=== PATIENT | male | born 1970 | race Caucasian/White ===

== ENCOUNTER 2024-06-05 14:42 | Outpatient (AMB) | payer OTHER, SELFPAY ==
--- NOTE | 2024-06-05 15:10 | A.OFFPC_ITS ---
Vital Signs 06/05/24 15:19 Height 5 ft 4.45 in Weight 173 lb 6 oz BMI 29.3 BP 120/70 Blood Pressure Location Rt brachial Position Sitting Respiration 14 Pulse 76 Pulse Source Pulse Oximeter Temp 98.9 F Temp Source Oral Pulse Oximetry (%) 98 Oxygen Delivery Method Room Air Intake Visit Reasons: STUDENT COUNSELLOR-PE Intake Note: patient is scheduled for new patient establish care Beveller Operator Required: No Allergies No Known Allergies Allergy (Verified 06/05/24 15:16) Medication List - Last Reconciled 06/05/24 by Sunny Brody MD No Known Home Meds Tobacco use date assessed: 06/05/24 Dental Screening Dental Screen Date: 06/05/24 Did you have a dental visit in the last 12 months?: Yes Did you have a dental problem in the last 6 months where you did not have access to dental care?: No Was dental information given to patient?: No HPI STUDENT COUNSELLOR-PE HPI Details New Patient? ?? Prior PCP:? No recent PCP Last office visit/CPE:? Many yrs Acute issue(s):? Est CAre ?? PMHx:? denies SurgHx:?None FHx:? Mother: DM, HTN. Brother: DM, HTN. SocHx: Quit 6 yrs ago. 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 1. Little interest or pleasure in doing things: not at all 2. Feeling down, depressed, or hopeless: not at all 3. Trouble falling or staying asleep, or sleeping too much: not at all 4. Feeling tired or having little energy: not at all 5. Poor appetite or overeating: not at all 6. Feeling bad about yourself - or that you are a failure or have let yourself or your family down: not at all 7. Trouble concentrating on things, such as reading the newspaper or watching television: not at all 8. Moving or speaking so slowly that other people could have noticed. Or the opposite - being so fidgety or restless that you have been moving around a lot more than usual: not at all 9. Thoughts that you would be better off or of hurting yourself in some way: not at all Total score: 0 Depression Screening Interpretation: Negative Depression Screening Done: Yes 71329 - PHQ-9 Billing: Yes Source: Developed by Drs. Luciano Montalvo, Monika Clark, Micah Vera and colleagues, with an educational yuri from [employer]. Thrive Questionnaire Date Thrive assessed: 06/05/24 I am a: Patient What is your living situation today?: I have a steady place to live Within the past 12 months, did the food you bought not last and you didn't have the money to get more?: Never true Within the past 12 months, did you worry whether your food would run out before you got money to buy more?: Never true Do you have trouble paying for medicines?: No Do you have trouble getting transportation to medical appointments?: No Do you have trouble paying your heating and electricity bill?: No Do you have trouble taking care of your child, family member or friend?: No Do you have trouble with day-to-day activities such as bathing, preparing meals, shopping, managing finances, etc.?: No Are you currently unemployed and looking for a job?: No Are you interested in more education?: No Please select the resources that you would like help with: None Currently or been in a relationship where the following occur: No concerns reported THRIVE Score: 0 AUDIT C Alcohol Use Questionnaire (AUDIT-C) 1. How often do you have a drink containing alcohol?: Never 3. How often do you have six or more drinks on one occasion?: Never Total Score: 0 Score Reviewed/Action Taken: Yes GENARO-7 AMB Questionnaire GENARO-7 Date GENARO - 7 assessed: 06/05/24 Feeling nervous, anxious, or on edge: 0 = Not at all Not being able to stop or control worryin = Not at all Worrying too much about different things: 0 = Not at all Trouble relaxin = Not at all Being so restless that it is hard to sit still: 0 = Not at all Becoming easily annoyed or irritable: 0 = Not at all Feeling afraid as if something awful might happen: 0 = Not at all Total GENARO-7 score (0-4 normal; 5-9 mild; 10-14 moderate; 15-21 severe): 0 Source: Developed by Drs. Luciano Montalvo, Monika Clark, Micah Vera and colleagues, with an educational yuri from [employer]. GENARO-7 Assessment Billing GENARO-7 Assessment Tool: GENARO-7 Assessment 80197 Review of Systems Const Denies chills, Denies fatigue, Denies fever(s), Denies headache(s) and Denies weakness Eyes Denies change in vision ENT Denies dizziness, Denies headache(s), Denies hearing loss, Denies nasal gale estion, Denies sinus pain, Denies sinus pressure and Denies sore throat Card Denies chest pain, Denies lightheadedness, Denies dyspnea and Denies other (palpitations) Resp Denies cough, Denies dyspnea and Denies wheezing GI Denies abdominal pain, Denies melena, Denies hematochezia, Denies change in bowel habits, Denies dyspepsia and Denies nausea Denies hematuria and Denies dysuria Musc Denies abnormal gait, Denies myalgias, Denies arthralgias, Denies numbness and Denies tingling Skin/Breast Denies rash, Denies unusual bruising and Denies wounds Neuro Denies abnormal gait, Denies dizziness, Denies headache(s), Denies memory loss, Denies numbness, Denies Sensory deficit (Neuro), Denies tingling and Denies weakness Psych Denies anxiety, Denies depression and Denies memory loss Endo Denies cold intolerance, Denies fatigue, Denies heat intolerance, Denies polydipsia and Denies polyuria Ankit/Lymph Denies easy bleeding and Denies easy bruising Aller/Immun Denies wheezing Physical exam (Primary Care) Vital Signs: Last Vital Signs Temp 98.9 F 06/05/24 15:19 Pulse 76 06/05/24 15:19 Resp 14 06/05/24 15:19 BP 120/70 06/05/24 15:19 Pulse Ox 98 06/05/24 15:19 Oxygen Delivery Method Room Air 06/05/24 15:19 BMI result Body Mass Index 29.3 Tobacco/Smoking Status: Tobacco use Status Tobacco use date assessed 06/05/24 06/05/24 15:22 Patient Tobacco Use Status Never used Tobacco 06/05/24 15:22 e-Cigarette/Vaping Use Never Used 06/05/24 15:22 PHQ-9: PHQ-9 Score PHQ-9: Total score 0 06/05/24 15:22 Depression Screening Interpretation: Negative Thrive Assessment: Date of Thrive Assessment Date Thrive assessed 06/05/24 06/05/24 15:22 Currently or been in a relationship where the following occur: No concerns reported Const General: no acute distress, well developed, alert and awake Nutritional Appearance: well nourished Orientation/consciousness: patient oriented x3 HENMT Head: Yes normocephalic and Yes atraumatic Ears: hearing grossly normal bilaterally and TM's normal bilaterally General nose exam: Normal external nose present and Normal nares present Mouth: Normal oral and palatal mucosa present and moist mucous membranes Teeth and gingiva: dentition normal Throat: Yes posterior oropharynx normal Eyes General: appearance normal, both eyes and all related structures Pupils: Equal, round and reactive pupils present and Pupil accommodation reflex normal EOM: EOMs intact bilaterally Neck Neck: Yes normal visual inspection, Yes no lymphadenopathy and Yes trachea midline Thyroid: Thyroid normal Carotids: no bruits Lymphatic: no lymphadenopathy noted Chest Chest palpation & inspection: normal inspection of the chest Resp Effort & Inspection: normal respiratory effort Auscultation: clear to auscultation bilaterally Cardio Rate: regular rate Rhythm: regular rhythm Heart sounds: S1 normal heart sound present, S2 normal heart sound present, no gallops, no murmurs and no rubs Bruits: no abdominal aortic bruits and no carotid bruits GI Palpation (GI): No Abdominal aortic bruit present, Soft to palpation, nontender, No hepatosplenomegaly present and No Rebound tenderness present Auscultation: normal bowel sounds General: Yes no CVA tenderness Back/Spine/Pelvis Back: no CVA tenderness Cervical Spine: cervical ROM normal and No Cervical spine tenderness Thoracic/Lumbar Spine: thoraco-lumbar ROM normal, No pain with thoraco-lumbar ROM, No thoracic spinal tenderness and No lumbar spinal tenderness Skin Lesions: no lesions Rashes: no rashes Trauma: no lacerations or abrasions Wounds: no wounds Nails: normal Neuro General: patient oriented x3 Cranial nerves: Yes Equal, round and reactive pupils present Cognition (Neuro): normal cognition Gait exam (Neuro): Normal gait present Motor exam (neuro): 5/5 motor strength present throughout Sensory Exam: No Sensory deficit (Neuro) Deep tendon reflexes (DTR's): Right patellar reflex intensity grade: 2+ and Left patellar reflex intensity grade: 2+ Extrem General: Yes normal to inspection and No edema Psych Appearance: grossly normal Affect: normal affect Attitude: cooperative Thought process: Normal thought process present Coding Level of Care Code New Pt Level 3 (87264) New Pt Prev Care 40-64y(49182) Diagnoses Adult general medical exam Z00.00 Screening for prostate cancer Z12.5 Additional Codes GENARO-7 Assessment Billing - GENARO-7 Assessment Tool: GENARO-7 Assessment 03038 ([id number]) PHQ-9 - 55756 - PHQ-9 Billing: Yes ([id number]) Assessment & Plan Assessment & Plan (1) Adult general medical exam: Code(s): Z00.00 - Encounter for general adult medical examination without abnormal findings Category: Medical Plan: 53-year-old?male?presents?as?new?patient?for?complete?physical?exam Exam?within?normal?limits Encouraged?healthy?diet?with?active?lifestyle?and?plenty?of?exercise (2) Screening for prostate cancer: Code(s): Z12.5 - Encounter for screening for malignant neoplasm of prostate Category: Medical Plan: Check?PSA Orders: Orders Microalbumin, Random (w Creat) Today I10 - Essential (primary) hypertension Prostate Specific Antigen Scr Today Z12.5 - Encounter for screening for malignant neoplasm of prostate TSH reflex Free T4 Today Z00.00 - Encounter for general adult medical examination without abnormal findings UA and rflx microscopic Today Z00.00 - Encounter for general adult medical examination without abnormal findings Comprehensive [place]. Panel Fast Today Z00.00 - Encounter for general adult medical examination without abnormal findings Lipid Panel Today Z00.00 - Encounter for general adult medical examination without abnormal findings Complete Blood Count Auto Diff Today Z00.00 - Encounter for general adult medical examination without abnormal findings
[2024-06-05 15:19] VITALS: BP 120/70; PULSE 76; RESP 14; TEMP 37.2; O2SAT 98; BMI 29.3
== END 2024-06-05 16:00 | disposition home or self-care (01) ==
LOC: HO.HMCFM 14:43
PROVIDERS: PCP Family Medicine; Visit Provider Family Medicine
DX: Z00.00 Encounter for general adult medical examination without abnormal findings (principal); Z12.5 Encounter for screening for malignant neoplasm of prostate

== ENCOUNTER → 2024-06-05 14:42 | Outpatient (BNVA) | payer OTHER, SELFPAY | PROVIDERS: PCP Family Medicine; Visit Provider Family Medicine ==

== ENCOUNTER 2024-06-05 15:38 | Outpatient (REF) | payer OTHER, SELFPAY ==
[2024-06-05 17:36] LABS: Appearance Urine Cloudy; Color Urine Dark Yellow; Glucose Urine UA Negative (Negative); Leukocyte Esterase Urine Negative (Negative); Nitrite Urine Negative (Negative); Specific Gravity - Urine >= 1.030 (1.005-1.025); Urine Blood Negative (Negative); Urine Ketones Negative (Negative); Urine Protein Trace mg/dL (Neg-Trace)
[2024-06-05 17:49] LABS: MANUAL DIFF FLAG NO
[2024-06-05 18:00] LABS: Basophils Percent Auto 0.3 % (0-2); Eosinophils Absolute Auto 0.1 X10*3/uL (0.0-0.4); Eosinophils Percent Auto 1.8 % (0-4); Hematocrit 43.2 % (42.0-52.0); Hemoglobin 14.5 g/dl (14.0-18.0); Imm Gran Abs Auto 0.05 X10*3/uL (0.00-0.03); Imm Gran Pct Auto 0.8 % (0.0-0.4); Lymphocytes Absolute Auto 2.3 X10*3/uL (1.2-4.9); Lymphocytes Percent Auto 35.2 % (20-40); Mean Corpuscular HGB Conc 33.6 g/dl (31.0-36.0); Mean Corpuscular Hemoglobin 30.3 pg (27.0-33.0); Mean Corpuscular Volume 90.2 fL (80.0-98.0); Monocytes Absolute Auto 0.4 X10*3/uL (0.1-1.2); Monocytes Percent Auto 6.2 % (2-11); Neutrophils Absolute Auto 3.7 x10*3/uL (2.0-8.3); Neutrophils Percent Auto 55.7 % (45-73); Platelet Count 209 X10*3/uL (160-400); Red Blood Count 4.79 X10*6/uL (4.60-5.80); Red Cell Distribution Width 11.1 % (11.0-16.0); White Blood Count 6.6 X10*3/uL (4.8-10.8)
[2024-06-05 18:19] LABS: Creatinine Urine 304.48 mg/dL; Microalbum/Creatinine Ratio Ur 5.2 ug/mg cr (<30)
[2024-06-05 18:33] LABS: Albumin Level 4.5 g/dL (3.5-5.0); Alkaline Phosphatase 53 U/L (39-117); Anion Gap 13 (12-20); Aspartate Amino Transferase 21 U/L (5-37); Blood Urea Nitrogen 13 mg/dL (9-16); Calcium 9.2 mg/dL (8.4-10.2); Carbon Dioxide 26 mmol/L (22-29); Chloride 107 mmol/L (96-108); Cholesterol 206 mg/dL (<200); Estimated Glomerular Filt Rate > 60; Glucose Fasting 105 mg/dL (60-99); HDL Cholesterol 33 mg/dL (>40); LDL Cholesterol Calculated 156 mg/dL (<100); Potassium 3.9 mmol/L (3.3-5.1); Sodium 142 mmol/L (135-145); Total Protein 7.8 g/dL (6.5-8.0); Triglycerides 88 mg/dL (<150)
[2024-06-05 18:41] LABS: Prostate Specific Antigen Scr 0.74 ng/mL (<0.05-4.0)
[2024-06-05 18:43] LABS: Alanine Aminotransferase 31 U/L (0-40); TSH reflex Free T4 0.78 uIU/mL (0.32-4.0)
== END 2024-06-05 15:39 | disposition home or self-care (01) ==
LOC: HO.WFDLDS 15:38
PROVIDERS: Visit Provider Family Medicine
DX: Z00.00 Encounter for general adult medical examination without abnormal findings (principal); Z12.5 Encounter for screening for malignant neoplasm of prostate; I10 Essential (primary) hypertension
CPT/HCPCS: 36415; 80053; 80061; 81003; 82043; 82570; 84153; 84443; 85025; 96127; 99386

== ENCOUNTER 2024-07-09 16:43 | Outpatient (AMB) | payer OTHER, SELFPAY ==
--- NOTE | 2024-07-09 16:41 | MHC.PC.OV ---
Intake Visit Reasons: f/u CPE-labs via telemedicine Electro Plater Required: No Allergies No Known Allergies Allergy (Verified 07/09/24 16:41) Tobacco use date assessed: 06/05/24 Dental Screening Dental Screen Date: 06/05/24 HPI f/u CPE-labs via telemedicine HPI Details 53 y/o male presents to f/u CPE-labs via telemedicine. Labs drawn 06/05/24. Reviewed labs with pt. Elevated fasting glucose of 105. Triglycerides 88. TC 206. LDl 156. HDL low at 33. PSA 0.74. TSH 0.78. 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 Cognitive needs: No Hearing needs: No Vision needs: No Questionnaire Thrive Questionnaire Date Thrive assessed: 06/05/24 I am a: Patient What is your living situation today?: I have a steady place to live Within the past 12 months, did the food you bought not last and you didn't have the money to get more?: Never true Within the past 12 months, did you worry whether your food would run out before you got money to buy more?: Never true Do you have trouble paying for medicines?: No Do you have trouble getting transportation to medical appointments?: No Do you have trouble paying your heating and electricity bill?: No Do you have trouble taking care of your child, family member or friend?: No Do you have trouble with day-to-day activities such as bathing, preparing meals, shopping, managing finances, etc.?: No Are you currently unemployed and looking for a job?: No Are you interested in more education?: No Please select the resources that you would like help with: None Currently or been in a relationship where the following occur: No concerns reported THRIVE Score: 0 GENARO-7 AMB Questionnaire GENARO-7 Date GENARO - 7 assessed: 06/05/24 Source: Developed by Drs. Luciano Montalvo, Monika Clark, Micah Vera and colleagues, with an educational yuri from [employer]. Physical exam (Primary Care) Tobacco/Smoking Status: Tobacco use Status Tobacco use date assessed 06/05/24 07/09/24 16:42 Patient Tobacco Use Status Never used Tobacco 07/09/24 16:42 e-Cigarette/Vaping Use Never Used 07/09/24 16:42 Thrive Assessment: Date of Thrive Assessment Date Thrive assessed 06/05/24 07/09/24 16:42 Currently or been in a relationship where the following occur: No concerns reported Telehealth Telehealth Telehealth Platform: Telephone Location of provider rendering services: practice address Location of patient: address on file Patient Identification confirmed using: Name, : Yes Telehealth method: voice only Patient verbally consented to treatment: Yes Patient verbally consented to billing insurance company: Yes Patient informed of any privacy concerns related to visit: Yes Minutes spent on Phone/Video with Pt.: 7 Coding Level of Care Code Tele Est Pt Level 2 (50348) Diagnoses Elevated fasting glucose R73.01 Hypercholesterolemia E78.00 Screening for prostate cancer Z12.5 Screening for colon cancer Z12.11 Assessment & Plan Assessment & Plan (1) Elevated fasting glucose: Code(s): R73.01 - Impaired fasting glucose Category: Medical Plan: Mildly?elevated?fasting?blood?sugar?105. Will?recheck?fasting?blood?sugar?with?next?blood?draw.??Will?also?check?A1c (2) Hypercholesterolemia: Code(s): E78.00 - Pure hypercholesterolemia, unspecified Category: Medical Plan: Elevated?LDL?cholesterol. Advised?a?diet?low?in?saturated?fats?and?cholesterol Will?recheck?in?2?months. We?discussed?that?if lipids?are?still?significantly?elevated,?will?want?to?consider?medication. (3) Screening for prostate cancer: Code(s): Z12.5 - Encounter for screening for malignant neoplasm of prostate Category: Medical Plan: PSA?is?within?normal?range Will?continuing?annual?screening (4) Screening for colon cancer: Code(s): Z12.11 - Encounter for screening for malignant neoplasm of colon Category: Medical Plan: Patient?has?never?had?screening?colon?cancer Referred?to?Gastroenterology Orders: Referrals Gastroenterology Referral Z12.11 - Encounter for screening for malignant neoplasm of colon
== END 2024-07-09 17:05 | disposition home or self-care (01) ==
LOC: HO.HMCFM 16:43
PROVIDERS: PCP Family Medicine; Visit Provider Family Medicine
DX: R73.01 Impaired fasting glucose (principal); E78.00 Pure hypercholesterolemia, unspecified; Z12.5 Encounter for screening for malignant neoplasm of prostate; Z12.11 Encounter for screening for malignant neoplasm of colon

== ENCOUNTER → 2024-07-09 16:43 | Outpatient (BNVA) | payer OTHER, SELFPAY | PROVIDERS: PCP Family Medicine; Visit Provider Family Medicine ==

== ENCOUNTER 2024-09-30 14:09 | Outpatient (AMB) | payer OTHER, SELFPAY ==
[2024-09-30 14:28] VITALS: BP 126/78; PULSE 69; TEMP 36.8; O2SAT 98; BMI 29.3
--- NOTE | 2024-09-30 14:28 | MHC.OFFWIV ---
Intake Vital Signs 09/30/24 14:28 Height 5 ft 4.45 in Weight 173 lb 4 oz BMI 29.3 BP 126/78 Blood Pressure Location Rt brachial Position Sitting Pulse 69 Pulse Source Pulse Oximeter Temp 98.2 F Temp Source Oral Pulse Oximetry (%) 98 Oxygen Delivery Method Room Air Intake Visit Reasons: EP Pain on LT rib Intake Note: Patient presented with left rib pain lindsay 1 week with no injury Patient Tobacco Use Status: Never used Tobacco Client Support Analyst Required: No Allergies No Known Allergies Allergy (Verified 09/30/24 14:31) Medication List - Last Reconciled 09/30/24 by Meseret Finn PA-C amoxicillin 875 mg PO BID Do you need a note to return to daycare/school/sports/work: No HPI HPI Comments History of Present Illness Details History of Present Illness - The patient is a 53-year-old male presenting with rib pain. - Pain began suddenly about 10 days ago, with no specific triggering event identified. - Pain is localized to the left anterior chest wall, occasionally moving to the back, but does not radiate to the shoulder or arm. - Has no respiratory discomfort with no cardiac history or chest pain reported. - No gastrointestinal issues or skin rash noted, and bowel movements are normal. - Sleeping facing a fan may be contributing to his symptoms. - He has no known injury or falls. - He has not been coughing or SOB. - He has no cardiac issues and he states that he runs. - He denies radiation of the pain to the left arm or jaw. - He has no associated FRY, SOB, dizziness, weakness, abd pain, n/v/d, constipation, melena, hernia or kidney stones. - He denies fever, chills, or dysuria. Physical Exam General: Cooperative, healthy appearing, comfortable, no acute distress and well developed Orientation: Patient oriented x3 Limitations: No limitations Head: Normal to inspection Neck: Normal visual inspection and Yes full ROM Respiratory: Normal respiratory effort and able to speak in complete sentences. Clear to auscultation bilaterally. No w/r/r noted. Cardiovascular: Regular rate and rhythm. Normal S1 and S2. No m/r/g noted. No TTP of the chest wall and no crepitus noted. GI: Normal to inspection. Soft to palpation and nontender, no guarding or rebound tenderness noted. No masses or hernia noted. Skin: No rashes or lesions noted Patient was informed and verbally consented to the use of an ambient scribe for clinic note documentation during this visit. 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 Cognitive needs: No Hearing needs: No Vision needs: No Review of Systems Const All systems reviewed & are unremarkable except as noted in HPI and below Physical Exam Vital Signs: Last Vital Signs Temp 98.2 F 09/30/24 14:28 Pulse 69 09/30/24 14:28 BP 126/78 09/30/24 14:28 Pulse Ox 98 09/30/24 14:28 Oxygen Delivery Method Room Air 09/30/24 14:28 BMI result Body Mass Index 29.3 Office Procedures EKG Details: Reviewed EKG, 70 BPM, No ST elevations [id number], Complete Assessment & Plan Assessment & Plan (1) Left-sided chest wall pain: Code(s): R07.89 - Other chest pain Plan Most MSK pain vs rib pain vs cardiac vs gas Plan - Perform EKG to assess cardiac function due to location of pain. - Conduct chest X-ray to evaluate lungs and ribs for any abnormalities. - Consider musculoskeletal causes for pain, but rule out other conditions with diagnostic tests. - Tylenol or motrin as needed - diet as tolerated - activites as tolerated - Advised him to f/u with his PCP. Orders: Orders AMB EKG-In Office Today R07.9 - Chest pain, unspecified XR chest 2V Today R05.9 - Cough, unspecified Coding Level of Care Code Est Pt Level 4 (09935) Diagnoses Left-sided chest wall pain R07.89 CPT Codes EKG - CPT: 19344-[id number], Complete ([id number])
== END 2024-09-30 15:36 | disposition home or self-care (01) ==
PROVIDERS: PCP Family Medicine; Visit Provider Physician Assistant Medical
DX: R07.89 Other chest pain (principal)

== ENCOUNTER 2024-09-30 14:09 | Outpatient (REF) | payer OTHER, SELFPAY ==
--- NOTE | ~2024-09-30 | XR_ITS ---
EXAMINATION: XR CHEST CLINICAL INFORMATION: R05.9 - Cough, unspecified COMPARISON: None available. TECHNIQUE: 2 views of the chest were obtained. FINDINGS: The cardiac, hilar, and mediastinal contours are normal. The lungs are clear bilaterally. There is no pneumothorax or pleural effusion. There is no focal osseous or soft tissue abnormality. XR/XR chest 2V IMPRESSION: No active pulmonary disease. Electronically signed by: Juan Lima MD 09/30/2024 03:35 PM EDT
== END 2024-09-30 14:10 | disposition home or self-care (01) ==
LOC: HO.HMGCX 14:09
PROVIDERS: PCP Family Medicine; Visit Provider Physician Assistant Medical
DX: R07.89 Other chest pain (principal); R05.9 Cough, unspecified
CPT/HCPCS: 71046; 93005; 99212

== ENCOUNTER → 2024-09-30 15:25 | Outpatient (BNV) | payer OTHER, SELFPAY | PROVIDERS: PCP Family Medicine; Visit Provider Radiology Diagnostic Radiology | DX: R05.9 Cough, unspecified (principal) | CPT/HCPCS: 71046 ==

== ENCOUNTER 2024-10-01 09:28 | Outpatient (AMB) | payer OTHER, SELFPAY ==
--- NOTE | 2024-10-01 09:31 | MHC.PC.OV ---
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 Denies any rash. Notes pain with breathing. Symptoms started about 10 days ago. He notes pain starts right around his shoulder blade - subscapularis. Has been going to the gym recently. Has not been taking any meds for the pain. Recent visit to urgent care and EKG/x-rays were negative. HPI Comments History of Present Illness Details Documentation assistance for Sunny Brody MD, was provided by Derick Colbert,? Sales And Merchandising Representative on 10/01/2024 at 10:12 AM EST. I, Dr. Brody, have read, observed, and verified documentation. ?? 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 Cognitive needs: No Hearing needs: No Vision needs: No Questionnaire Thrive Questionnaire Date Thrive assessed: 06/05/24 I am a: Patient What is your living situation today?: I have a steady place to live Within the past 12 months, did the food you bought not last and you didn't have the money to get more?: Never true Within the past 12 months, did you worry whether your food would run out before you got money to buy more?: Never true Do you have trouble paying for medicines?: No Do you have trouble getting transportation to medical appointments?: No Do you have trouble paying your heating and electricity bill?: No Do you have trouble taking care of your child, family member or friend?: No Do you have trouble with day-to-day activities such as bathing, preparing meals, shopping, managing finances, etc.?: No Are you currently unemployed and looking for a job?: No Are you interested in more education?: No Please select the resources that you would like help with: None Currently or been in a relationship where the following occur: No concerns reported THRIVE Score: 0 GENARO-7 AMB Questionnaire GENARO-7 Date GENARO - 7 assessed: 06/05/24 Source: Developed by Drs. Luciano Montalvo, Monika Clark, Micah Vera and colleagues, with an educational yuri from [employer]. Review of Systems Const Denies chills, Denies fatigue, Denies fever(s), Denies headache(s) and Denies weakness ENT Denies dizziness and Denies headache(s) Card Denies dyspnea Resp Denies cough, Denies dyspnea, Denies wheezing and Denies other (shortness of breath) Musc Reports back pain, Denies numbness and Denies tingling Neuro Denies dizziness, Denies headache(s), Denies numbness, Denies tingling and Denies weakness Psych Denies anxiety and Denies depression Endo Denies fatigue Aller/Immun Denies wheezing Physical exam (Primary Care) Vital Signs: Last Vital Signs Temp 98.1 F 10/01/24 09:35 Pulse 64 10/01/24 09:35 Resp 16 10/01/24 09:35 BP 115/69 10/01/24 09:35 Pulse Ox 98 10/01/24 09:35 Oxygen Delivery Method Room Air 10/01/24 09:35 BMI result Body Mass Index 29.2 Tobacco/Smoking Status: Tobacco use Status Tobacco use date assessed 10/01/24 10/01/24 09:38 Patient Tobacco Use Status Never used Tobacco 10/01/24 09:34 e-Cigarette/Vaping Use Never Used 10/01/24 09:34 Thrive Assessment: Date of Thrive Assessment Date Thrive assessed 06/05/24 10/01/24 09:34 Currently or been in a relationship where the following occur: No concerns reported Const General: well developed; No acute distress Nutritional Appearance: well nourished Orientation/consciousness: patient oriented x3 HENMT Head: Yes normocephalic and Yes atraumatic Eyes General: appearance normal, both eyes and all related structures Pupils: Equal, round and reactive pupils present EOM: EOMs intact bilaterally Resp Effort & Inspection: normal respiratory effort Neuro General: patient oriented x3 and gait normal Cranial nerves: Yes Equal, round and reactive pupils present Psych Affect: normal affect Coding Level of Care Code Est Pt Level 3 (94898) Diagnoses Back pain M54.9 Rib pain on left side R07.81 Assessment & Plan Assessment & Plan (1) Back pain: Code(s): M54.9 - Dorsalgia, unspecified Category: Medical (2) Rib pain on left side: Code(s): R07.81 - Pleurodynia Category: Medical Plan Patient had recent visit to urgent care and EKG and x-rays were negative. Appears to be muscle strain at subscapularis and lateral latissimus muscles Advised relative rest as he has been going to the gym lately. Advised heat NSAID and will give him a short course of muscle relaxant - do not operate machinery or drive until you know how this makes you feel Patient also has had air conditioning and fan blowing on him while he sleeps and I advised him to avoid this Offered physical therapy but patient declines this for now. Medications: New meloxicam 15 mg PO DAILY 30 tabs 2RF 30 days cyclobenzaprine 10 mg PO BID PRN 20 tabs 0RF muscle spasm 10 days
[2024-10-01 09:35] VITALS: BP 115/69; PULSE 64; RESP 16; TEMP 36.7; O2SAT 98; BMI 29.2
== END 2024-10-01 10:22 | disposition home or self-care (01) ==
LOC: HO.HMCFM 09:29
PROVIDERS: PCP Family Medicine; Visit Provider Family Medicine
DX: M54.9 Dorsalgia, unspecified (principal); R07.81 Pleurodynia

== ENCOUNTER → 2024-10-01 09:28 | Outpatient (BNVA) | payer OTHER, SELFPAY | PROVIDERS: PCP Family Medicine; Visit Provider Family Medicine | DX: R07.81 Pleurodynia (principal); M54.9 Dorsalgia, unspecified | CPT/HCPCS: 99212 ==

== ENCOUNTER 2024-11-05 14:42 | Outpatient (AMB) | payer OTHER, SELFPAY ==
--- NOTE | 2024-11-05 14:57 | MHC.OFFVIS ---
Vital Signs 11/05/24 14:58 Height 5 ft 5.4 in Weight 174 lb BMI 28.6 BP 129/71 Blood Pressure Location Lt brachial Position Sitting Pulse 70 Pulse Oximetry (%) 97 Oxygen Delivery Method Room Air Intake Visit Reasons: Colon Screening Intake Note: Patient new consult for 1st pre Colonoscopy screening. Patient denies any GI issues for today. 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 Referred by PCP for pre colonoscopy screening Patient is accompanied by his . Tamer reports stool pattern as daily, without concerns for constipation, diarrhea, or blood in stools. Occasional heartburn is experienced infrequently, approximately once every two months, and is self-resolving without the use of medication. No regurgitation, difficulty swallowing, or recent fever reported. Appetite is intact. Patient reports stable weight in the 170s. No other GI-related symptoms or systemic concerns highlighted. Patient denies: n/v, appetite changes, unintentional wt loss, ab pain or melena/hematochezia. Social hx: -Denies ETOH use -denies recreational drug use -former smoker, cessation 6-7 years ago - family hx as below -denies personal hx of CA -denies significant cardiopulmonary history -tolerated anesthesia in the past without difficulty. 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 Cognitive needs: No Hearing needs: No Vision needs: No Review of Systems Const Reports as per HPI ENT Reports as per HPI Card Reports as per HPI Resp Reports as per HPI GI Reports as per HPI Reports as per HPI Physical Exam Vital Signs: Last Vital Signs Pulse 70 11/05/24 14:58 BP 129/71 11/05/24 14:58 Pulse Ox 97 11/05/24 14:58 Oxygen Delivery Method Room Air 11/05/24 14:58 BMI result Body Mass Index 28.6 Const General: healthy appearing, no acute distress and well developed Nutritional Appearance: average body habitus Orientation/consciousness: patient oriented x3 HEENT Head: Yes normal to inspection, Yes normocephalic and Yes atraumatic Face and sinus: Yes normal facial exam Eyes General: appearance normal, both eyes and all related structures Neck Neck: Yes normal visual inspection Resp Effort & Inspection: normal respiratory effort, able to speak in complete sentences, no tracheal deviation and symmetric chest movement Cardio Jugular venous distension: no JVD Neuro General: patient oriented x3 Gait exam (Neuro): Normal gait present Psych Appearance: grossly normal Mental Status: mental status grossly normal Speech and movement: Normal speech and movement present Affect: normal affect Attitude: cooperative Thought process: Normal thought process present Thought content: Normal thought content present Insight: Good insight present (Psych) Judgement: Good judgement present (Psych) Assessment & Plan Assessment & Plan (1) Screening for colon cancer: Code(s): Z12.11 - Encounter for screening for malignant neoplasm of colon Category: Medical Plan: Due for index screening colonoscopy. Without alarm features. Medications: -prescriptions for laxative tablets and MiraLax sent to pharmacy; instructions for Gatorade purchase and clear liquid diet given. Patient educated on scheduling process, procedure preparation, including avoiding certain foods and ensuring clear liquid intake Advised on necessity for ride post-procedure due to sedation. Plan Follow-up after colonoscopy as warranted or sooner if needed Time: I spent a total of 30 minutes on the date of encounter which includes: Preparing to see the patient (reviewed previous documentation, test results and medical history) Performing a medically appropriate exam and/or evaluation Ordering medications, tests, and procedures Documenting clinical information in the health record Medications: New bisacodyl (Dulcolax (bisacodyl)) Take four tablets pre colonoscopy instructions 20 mg (4 x 5 mg) PO ONCE 4 tabs 0RF 1 day polyethylene glycol 3350 (Miralax) per colonoscopy prep instructions 238 grams PO ONCE 238 grams 0RF Coding Level of Care Code New Pt New Pt Level 3 (86401) Patient Type New Diagnoses Screening for colon cancer Z12.11
[2024-11-05 14:58] VITALS: BP 129/71; PULSE 70; O2SAT 97; BMI 28.6
== END 2024-11-05 15:28 | disposition home or self-care (01) ==
LOC: HO.HGI 14:43
PROVIDERS: PCP Family Medicine; Visit Provider Nurse Practitioner Family
DX: Z01.818 Encounter for other preprocedural examination (principal); Z12.11 Encounter for screening for malignant neoplasm of colon
CPT/HCPCS: 99203

== ENCOUNTER → 2024-11-05 14:42 | Outpatient (BNVA) | payer OTHER, SELFPAY | PROVIDERS: PCP Family Medicine; Visit Provider Nurse Practitioner Family | DX: Z01.818 Encounter for other preprocedural examination (principal); I10 Essential (primary) hypertension; M54.50 Low back pain, unspecified; E66.3 Overweight | CPT/HCPCS: 99202 ==

== ENCOUNTER 2024-11-27 08:29 | Outpatient (REF) | payer OTHER, SELFPAY ==
[2024-11-27 11:35] LABS: Hemoglobin A1C 111.8443 umol/L; Total Hemoglobin (HGBA1C) 3967.4726 umol/L
[2024-11-27 11:52] LABS: Alanine Aminotransferase 37 U/L (0-40); Albumin Level 4.7 g/dL (3.5-5.0); Alkaline Phosphatase 54 U/L (39-117); Anion Gap 12 (12-20); Aspartate Amino Transferase 35 U/L (5-37); Blood Urea Nitrogen 8 mg/dL (9-16); Calcium 8.9 mg/dL (8.4-10.2); Carbon Dioxide 25 mmol/L (22-29); Chloride 107 mmol/L (96-108); Cholesterol 228 mg/dL (<200); Estimated Glomerular Filt Rate > 60; HDL Cholesterol 36 mg/dL (>40); Potassium 4.1 mmol/L (3.3-5.1); Sodium 140 mmol/L (135-145); Total Protein 7.0 g/dL (6.5-8.0); Triglycerides 135 mg/dL (<150)
== END 2024-11-27 08:30 | disposition home or self-care (01) ==
LOC: HO.WFDLDS 08:29
PROVIDERS: Visit Provider Family Medicine
DX: Z00.00 Encounter for general adult medical examination without abnormal findings (principal); R73.01 Impaired fasting glucose
CPT/HCPCS: 36415; 80053; 80061; 83036

== ENCOUNTER 2025-01-19 08:45 | Outpatient (REF) | payer OTHER, SELFPAY ==
[2025-01-19 12:05] LABS: Alanine Aminotransferase 38 U/L (0-40); Albumin Level 4.7 g/dL (3.5-5.0); Alkaline Phosphatase 54 U/L (39-117); Anion Gap 11 (12-20); Aspartate Amino Transferase 30 U/L (5-37); Blood Urea Nitrogen 13 mg/dL (9-16); Calcium 9.1 mg/dL (8.4-10.2); Carbon Dioxide 27 mmol/L (22-29); Chloride 107 mmol/L (96-108); Estimated Glomerular Filt Rate > 60; Potassium 4.2 mmol/L (3.3-5.1); Sodium 141 mmol/L (135-145); Total Protein 7.1 g/dL (6.5-8.0)
== END 2025-01-19 08:46 | disposition home or self-care (01) ==
LOC: HO.WFDLDS 08:45
PROVIDERS: Visit Provider Family Medicine
DX: Z00.00 Encounter for general adult medical examination without abnormal findings (principal); R73.01 Impaired fasting glucose; E78.5 Hyperlipidemia, unspecified; E78.00 Pure hypercholesterolemia, unspecified
CPT/HCPCS: 36415; 80053; 83036; 83721

== ENCOUNTER 2025-02-04 11:25 | Outpatient (AMB) | payer MEDICAID, SELFPAY ==
--- NOTE | 2025-02-04 11:39 | MHC.PC.OV ---
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 Labs drawn 01/19/25. Reviewed labs with pt. Fasting glucose 111. A1c 4.6%. LDL direct 174. 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 Cognitive needs: No Hearing needs: No Vision needs: No Questionnaire Thrive Questionnaire Date Thrive assessed: 06/05/24 I am a: Patient What is your living situation today?: I have a steady place to live Within the past 12 months, did the food you bought not last and you didn't have the money to get more?: Never true Within the past 12 months, did you worry whether your food would run out before you got money to buy more?: Never true Do you have trouble paying for medicines?: No Do you have trouble getting transportation to medical appointments?: No Do you have trouble paying your heating and electricity bill?: No Do you have trouble taking care of your child, family member or friend?: No Do you have trouble with day-to-day activities such as bathing, preparing meals, shopping, managing finances, etc.?: No Are you currently unemployed and looking for a job?: No Are you interested in more education?: No Please select the resources that you would like help with: None Currently or been in a relationship where the following occur: No concerns reported THRIVE Score: 0 AUDIT C Alcohol Use Questionnaire (AUDIT-C) 2. How many drinks containing alcohol do you have on a typical day when you are drinking?: 1 or 2 Total Score: 0 GENARO-7 AMB Questionnaire GENARO-7 Date GENARO - 7 assessed: 06/05/24 Source: Developed by Drs. Luciano Montalvo, Monika Clark, Micah Vera and colleagues, with an educational yuri from [employer]. Review of Systems Const Denies chills, Denies fatigue, Denies fever(s), Denies headache(s) and Denies weakness ENT Denies dizziness and Denies headache(s) Card Denies dyspnea Resp Denies cough, Denies dyspnea, Denies wheezing and Denies other (shortness of breath) Musc Denies numbness and Denies tingling Neuro Denies dizziness, Denies headache(s), Denies numbness, Denies tingling and Denies weakness Psych Denies anxiety and Denies depression Endo Denies fatigue Aller/Immun Denies wheezing Physical exam (Primary Care) Vital Signs: Last Vital Signs Temp 98.6 F 02/04/25 11:41 Pulse 71 02/04/25 11:41 Resp 14 02/04/25 11:41 BP 120/62 02/04/25 11:41 Pulse Ox 98 02/04/25 11:41 Oxygen Delivery Method Room Air 02/04/25 11:41 BMI result Body Mass Index 28.8 Tobacco/Smoking Status: Tobacco use Status Tobacco use date assessed 10/01/24 02/04/25 11:40 Patient Tobacco Use Status Never used Tobacco 02/04/25 11:40 e-Cigarette/Vaping Use Never Used 02/04/25 11:40 Thrive Assessment: Date of Thrive Assessment Date Thrive assessed 06/05/24 02/04/25 11:40 Currently or been in a relationship where the following occur: No concerns reported Const General: well developed; No acute distress Nutritional Appearance: well nourished Orientation/consciousness: patient oriented x3 HENMT Head: Yes normocephalic and Yes atraumatic Eyes General: appearance normal, both eyes and all related structures Pupils: Equal, round and reactive pupils present EOM: EOMs intact bilaterally Resp Effort & Inspection: normal respiratory effort Auscultation: clear to auscultation bilaterally Cardio Rate: regular rate Rhythm: regular rhythm Heart sounds: S1 normal heart sound present, S2 normal heart sound present, no gallops, no murmurs and no rubs Neuro General: patient oriented x3 and gait normal Cranial nerves: Yes Equal, round and reactive pupils present Psych Affect: normal affect Coding Level of Care Code Est Pt Level 4 (60391) Diagnoses Hypercholesterolemia E78.00 Elevated fasting glucose R73.01 Assessment & Plan Assessment & Plan (1) Hypercholesterolemia: Code(s): E78.00 - Pure hypercholesterolemia, unspecified Category: Medical Plan: LDL cholesterol is much too high. We had discussed starting a medication and he was not able to bring this down Will add atorvastatin 40 mg daily Will recheck in a few months (2) Elevated fasting glucose: Code(s): R73.01 - Impaired fasting glucose Category: Medical Plan: Fasting blood sugars have been elevated though his A1c is still in the normal range. He notes that he eats plenty of sweets and also a lot of starches Work on a diet lower in sugars and starches Will continue to monitor Orders: Orders Comprehensive [place]. Panel Fast Today E78.00 - Pure hypercholesterolemia, unspecified, Z00.00 - Encounter for general adult medical examination without abnormal findings Lipid Panel Today E78.00 - Pure hypercholesterolemia, unspecified, Z00.00 - Encounter for general adult medical examination without abnormal findings Medications: New atorvastatin (Lipitor) 40 mg PO BEDTIME 90 tabs 3RF 90 days
[2025-02-04 11:41] VITALS: BP 120/62; PULSE 71; RESP 14; TEMP 37; O2SAT 98; BMI 28.8
== END 2025-02-04 12:15 | disposition home or self-care (01) ==
PROVIDERS: PCP Family Medicine; Visit Provider Family Medicine
DX: E78.00 Pure hypercholesterolemia, unspecified (principal); R73.01 Impaired fasting glucose

== ENCOUNTER → 2025-02-04 11:25 | Outpatient (BNVA) | payer MEDICAID, SELFPAY | PROVIDERS: PCP Family Medicine; Visit Provider Family Medicine | DX: R73.01 Impaired fasting glucose (principal); E78.00 Pure hypercholesterolemia, unspecified | CPT/HCPCS: 99212 ==